=== PATIENT | female | born 1960 | race Caucasian/White ===

== ENCOUNTER 2017-07-23 09:56 | Day surgery (SDC) | payer BC ==
[2017-07-23] VITALS (10 sets, daily range): BP systolic 102–133; BP diastolic 53–71; PULSE 67–76; RESP 14–26; Ht 157.5 cm; Wt 63.1 kg
[~2017-07-23] VITALS: Ht 157.5 cm; Wt 63.1 kg
[~2017-07-23 09:56] MED LIST: ATOR10TA65; GLYB5TAB3 PO; METF-480 PO; METF500T4 PO; OXYB10TA6 PO
[2017-07-23] MEDS ORDERED: METF850T PO (10:18)
[2017-07-23] MEDS ORDERED: GLIM2TAB PO (10:20)
[2017-07-23] MEDS ORDERED: ATOR20TA38 PO (10:21)
[2017-07-23] MEDS ORDERED: ERGO500037 PO (10:21)
[2017-07-23] MEDS ORDERED: LORAZEPAM 2 MG INJ IV PRN (10:30)
[2017-07-23] MEDS ORDERED: OXYCODONE/ACETAMINOPHEN (5/325) TAB PO PRN ×2 (10:30)
[2017-07-23] MEDS ORDERED: ONDANSETRON 4 MG INJ IV PRN (10:30)
[2017-07-23] MEDS ORDERED: TOBRAMYCIN 0.3% 5 ML OPH ONE (10:42)
[2017-07-23] MEDS ORDERED: LIDOCAINE 2% (SDV) 5 ML INJ ONE ×2 (10:42→11:34)
[2017-07-23] MEDS ORDERED: LIDOCAINE 1% (MPF) 10 ML INJ ONE (10:42)
[2017-07-23] MEDS ORDERED: TOBRAMYCIN 0.3% 3.5 GM OPH OINT ONE (10:43)
[2017-07-23] MEDS ORDERED: BUPIVACAINE 0.5% (SDV) 30 ML INJ ONE (10:44)
[2017-07-23] MEDS ORDERED: MOXIFLOXACIN 0.5% 3 ML OPH OPER SCH (11:00)
[2017-07-23] MEDS ORDERED: PROPARACAINE 0.5% 15 ML OPH OPER SCH (11:00)
[2017-07-23] MEDS ORDERED: CYCLOPENTOLATE 1% 2 ML OPH OPER SCH (11:00)
[2017-07-23] MEDS ORDERED: BSS PLUS 500 ML + VANCO 10MG, GENT 4 MG, EPI 0.25 MG IRR SCH ×4 (11:00)
[2017-07-23] MEDS ORDERED: PHENYLephrine 2.5% 15 ML OPH OPER SCH (11:00)
[2017-07-23] MEDS ORDERED: TROPICAMIDE 1% 3 ML OPH OPER SCH (11:00)
[2017-07-23] MEDS ORDERED: HYALURONIDASE 150 UNIT/ML VIAL SC ONE (11:30)
[2017-07-23] MEDS ORDERED: PROPOFOL 0 ML ONE (11:34)
[2017-07-23] MEDS ORDERED: FENTAnyl 50 MCG/ML VIAL ONE (11:34)
[2017-07-23] MEDS ORDERED: LIDOCAINE 1% (MPF) 10 ML INJ INJ ONE (11:38)
[2017-07-23] MEDS ORDERED: DEXTROSE 50% 50 ML SYRINGE ONE (12:05)
--- NOTE | 2017-07-23 13:20 | SIPON ---
Date/Time of Note Date/Time of Note DATE: 07/23/17 TIME: 13:17 Operative Report Preoperative Diagnosis cataract right eye Postoperative Diagnosis same Operation/Procedure Performed KPE phakoemulsification removal of lens with intraocular lens implant right eye Surgeon see signature line sound assistant none Anesthesia: other (topical) Estimated blood loss: none Transfusion Required none Specimen none Grafts/Implants LI61AO +20.50 iol Complications none ROCIO MARTINEZ MD Jul 23, 2017 13:20
--- NOTE | 2017-07-23 18:29 | OPR ---
DATE OF OPERATION: 07/23/2017 PREOPERATIVE DIAGNOSIS: Cataract, right eye. POSTOPERATIVE DIAGNOSIS: Cataract, right eye. OPERATION PERFORMED: Cataract removal and phacoemulsification with implantation of posterior intrao cular lens, temporal approach, clear cornea, topical anesthesia. ESTIMATED BLOOD LOSS: None. COMPLICATIONS: None. INTRAOCULAR LENS IMPLANT: Manufactured by [employer] model LI61AO +20.50 diopter lens. PROCEDURE NOTE: Prior to the procedure had discussion with the patient. Alternatives, risks, benef its and possible complications were discussed. Alternatives being no surgery whatsoever. Risks inv olved loss of vision in the eye, loss of the eye, bleeding, infection, retinal detachment, endophtha lmitis, loss of vision the eye, loss of the eye, cystoid macular edema, vitreous loss, displacement of the intraocular lens, improper intraocular lens power, irregular anatomy, ptosis, diplopia and al l the problems associated with intraocular surgery as well the risks of anesthesia including brain d amage, stroke, and . The patient appeared to understand and desired to proceed with surgery. DESCRIPTION OF PROCEDURE: The patient was dilated in the preoperative area and then brought to the operating room in good condition, where monitored anesthesia care was provided by the anesthesiologi st. The patient was prepped and draped in the usual manner for intraocular surgery of the right eye . Lid speculum was placed in the eye and 2 stab incisions were made at 6 and 12 o'clock position. Intraocular preservative-free lidocaine was instilled. A 2.8 keratome was then utilized to create a limbal wound. Following this, utilizing a curved cystotome needle and viscoelastic, an anterior ca psulorrhexis was performed under viscoelastic. The anterior capsular flap was removed with the Utra ta forceps. Hydrodelineation, hydrodissection was the performed with the balanced salt solution. F ollowing this the phacoemulsification tip was utilized, and the lens nucleus was removed in the divi de and conquer method. Following this, bimanual irrigation aspiration ports and devices were utiliz ed to remove the remaining cortex from the eye as well as in the equator of the capsule in all quadr ants. The viscoelastic was then instilled to inflate the capsular bag and under direct visualization after the lens was placed in the cartridge, the lens was inserted into the capsular bag confirming both t he leading and the trailing haptic to be within the capsular bag along with the optic. The lens was rotated freely and it was found completely to be within the capsular bag. Viscoelastic was then re moved with the bimanual irrigation aspiration ports. The wounds were hydro-inflated. The wounds we re checked for leaks. No leaks were found. The patient tolerated procedure well. No complications encountered. Dictated By: ROCIO OROZCO/KENNA Conf#: [id number] DID#: [id number]
== END 2017-07-23 14:36 | disposition home or self-care (01) ==
LOC: SDS 09:56
PROVIDERS: ATTEND Ophthalmology
DX: H26.9 Unspecified cataract (principal)
CPT/HCPCS: 66982; 82962; 84703; J0171; J3010; J3370; V2632

== ENCOUNTER 2017-11-19 08:33 | Day surgery (SDC) | END 2017-11-19 14:42 | disposition home or self-care (01) ==

== ENCOUNTER 2018-07-30 09:53 | Emergency (ER) | END 2018-07-30 12:56 | disposition home or self-care (01) ==